=== PATIENT | female | born 1965 | race Caucasian/White ===

== ENCOUNTER 2016-12-31 13:36 | Emergency (ER) | payer MEDICAID ==
[~2016-12-31] VITALS: Ht 165.1 cm; Wt 61.2 kg
[2016-12-31] MEDS ORDERED: LORazepam 2MG/ML-1ML VIAL IV ONE (14:00)
[2016-12-31 14:19] VITALS: BP 172/92
[2016-12-31] MEDS ORDERED: KETOROLAC TROMETH 30 MG/ML 1ML VIAL IV ONE (14:30)
[2016-12-31 15:16] LABS: Basophils # (auto) 0 uL; Basophils % (auto) 0.3 % (0.0-2.0); Eosinophils # (auto) 0 uL; Eosinophils % (auto) 0.1 % (0.0-7.0); Hematocrit 40.1 % (36.0-46.0); Hemoglobin 13.4 g/dL (12.2-16.2); Lymphocytes # (auto) 1.2 uL; Mean Corpuscular Hemoglobin 30.3 pg (28.0-32.0); Mean Corpuscular Hgb Conc. 33.6 g/dL (32.0-36.0); Mean Corpuscular Volume 90.3 fL (80.0-100.0); Mean Platelet Volume 7.5 fL (6.9-10.8); Monocytes # (auto) 0.6 uL; Monocytes % (auto) 4.8 % (0.0-12.0); Neutrophils # (auto) 9.8 uL; Neutrophils % (auto) 84.8 % (37.0-80.0); Nucleated Red Blood Cells % 0.1 %; Platelet Count (auto) 355 10^3/uL (140-450); Red Cell Distribution Width 13.6 % (11.8-14.3); White Blood Cell 11.5 10^3/uL (4.4-10.8)
[2016-12-31 15:29] LABS: Albumin 4.1 g/dL (3.4-5.0); Anion Gap 6 (5-15); Aspartate Aminotransferase 15 U/L (15-37); Blood Urea Nitrogen 12 mg/dL (7-18); Calcium 9.2 mg/dL (8.5-10.1); Carbon Dioxide 29 mmol/L (21-32); Chloride 105 mmol/L (98-107); GFR African American 98 mL/min; GFR Non-African American 81 mL/min; Glucose 117 mg/dL (74-106); Potassium 3.5 mmol/L (3.5-5.1); Sodium 140 mmol/L (136-145)
[2016-12-31 15:32] LABS: Alkaline Phosphatase 72 U/L (45-117); Bilirubin, Total 0.6 mg/dL (0.2-1.0)
== END 2016-12-31 17:47 | disposition home or self-care (01) ==
LOC: ER 13:36 → EDBD 13:36 → ER 17:47
DX: F41.9 Anxiety disorder, unspecified (principal); M54.9 Dorsalgia, unspecified; G89.29 Other chronic pain; M25.561 Pain in right knee; Z90.710 Acquired absence of both cervix and uterus
CPT/HCPCS: 36415; 80053; 80307; 80320; 85025; 96374; 96375; 99284; J1885; J2060

== ENCOUNTER 2018-04-20 16:21 | Emergency (ER) | payer MEDICAID ==
[~2018-04-20] VITALS: Ht 170.2 cm; Wt 68.0 kg
[2018-04-20 16:43] VITALS: BP 142/74
== END 2018-04-20 17:40 | disposition home or self-care (01) ==
LOC: EDBD 16:21 → ER 16:21
DX: F41.0 Panic disorder [episodic paroxysmal anxiety] (principal); F31.9 Bipolar disorder, unspecified; Z90.710 Acquired absence of both cervix and uterus
CPT/HCPCS: 93005

== ENCOUNTER 2020-12-12 12:17 | Inpatient (IN) | payer MEDICAID ==
[~2020-12-12] VITALS: Ht 167.6 cm; Wt 73.5 kg
[2020-12-12 13:13] LABS: Basophils # (auto) 0.1 10 ^3/uL (0-0.2); Basophils % (auto) 0.6 % (0.0-2.0); Eosinophils # (auto) 0 10 ^3/uL (0-0.8); Hematocrit 35.1 % (36.0-46.0); Hemoglobin 11.9 g/dL (12.2-16.2); Lymphocytes # (auto) 0.5 10 ^3/uL (0.4-5.4); Lymphocytes % (auto) 3.4 % (10.0-50.0); Mean Corpuscular Hemoglobin 29.4 pg (28.0-32.0); Mean Corpuscular Hgb Conc. 34.1 g/dL (32.0-36.0); Mean Corpuscular Volume 86.3 fL (80.0-100.0); Monocytes # (auto) 0.5 10 ^3/uL (0-1.3); Monocytes % (auto) 3.3 % (0.0-12.0); Neutrophils # (auto) 13.1 10 ^3/uL (1.6-8.6); Neutrophils % (auto) 92.7 % (37.0-80.0); Red Blood Cells 4.06 10^6/uL (4.0-5.20); Red Cell Distribution Width 14.3 % (11.8-14.3); White Blood Cell 14.1 10^3/uL (4.4-10.8)
[2020-12-12 13:27] LABS: Lactic Acid w/Reflex 3.2 mmol/L (0.4-2.0)
[2020-12-12 13:30] LABS: Albumin 3.9 g/dL (3.4-5.0); BUN/Creatinine Ratio 8.7; Potassium 3.3 mmol/L (3.5-5.1)
[2020-12-12 13:35] LABS: Bilirubin, Total 0.9 mg/dL (0.2-1.0); Total Protein 7.2 g/dL (6.4-8.2)
[2020-12-12 14:51] LABS: Urine Bacteria NONE SEEN /hpf (None Seen); Urine Blood Negative /uL (Negative); Urine Mucus FEW (None Seen); Urine Specific Gravity 1.014 (1.001-1.035); Urine WBC <1 /hpf (0 - 5)
[2020-12-12 15:02] LABS: Amphetamine Screen, Urine NEGATIVE (NEGATIVE); Barbiturate Scree,Urine NEGATIVE (NEGATIVE); Benzodiazephine Screen, Urine NEGATIVE (NEGATIVE); Cannabinoid Screen, Urine POSITIVE (NEGATIVE); Cocaine Screen, Urine NEGATIVE (NEGATIVE); Opiate Scree,Urine POSITIVE (NEGATIVE); Phencyclidine Screen, Urine NEGATIVE (NEGATIVE)
[2020-12-12] MEDS ORDERED: NITROGLYCERIN 0.4 MG SL TAB SL PRN ×3 (17:30→23:00)
[2020-12-12] MEDS ORDERED: POTASSIUM CHL 20MEQ/100ML 100 ML IV ONE (17:30)
[2020-12-12] MEDS ORDERED: SODIUM CHLORIDE 0.9% 1,000 ML IV ONE (17:30)
[2020-12-12] MEDS ORDERED: MORPHINE SULFATE INJECTION 2 MG/ML SYRG IV PRN ×5 (17:30→23:00)
[2020-12-12] MEDS ORDERED: LORazepam 2MG/ML-1ML VIAL IV ONE (18:15)
[2020-12-12] MEDS ORDERED: HALOPERIDOL LACTATE 5 MG/ML INJ VIAL IM ONE (18:15)
[2020-12-12] MEDS ORDERED: ENOXAPARIN SOD 80 MG/0.8ML SYRINGE SC ONE (19:00)
[2020-12-12] MEDS ORDERED: METOPROLOL SUCCINATE XL 50 MG TAB PO ONE ×2 (19:00→22:45)
[2020-12-12] MEDS ORDERED: BENAZEPRIL HCL 10 MG TAB PO ONE ×2 (19:00→22:45)
[2020-12-12] MEDS ORDERED: SODIUM CHLORIDE 0.9% 1,000 ML IV SCH ×2 (19:00→23:00)
[2020-12-12] MEDS ORDERED: ASPirin 81 mg TAB PO ONE ×2 (19:00→22:45)
[2020-12-12] MEDS ORDERED: MAGNESIUM SULFATE 1GM/100ML 100 ML IV ONE ×3 (19:00→22:45)
[2020-12-12] MEDS ORDERED: cefTRIAXone 1GM/50ML D5W 50 ML IV ONE ×3 (19:00→22:45)
[2020-12-12] MEDS ORDERED: ATORVASTATIN 20 MG TAB PO ONE (19:00)
[2020-12-12] MEDS ORDERED: ENOXAPARIN SOD 100 MG/1 ML SYRINGE SC ONE (19:00)
[2020-12-12] MEDS ORDERED: PANTOPRAZOLE 40 MG/10 ML VIAL INJ IV ONE ×2 (19:00→21:25)
[2020-12-12] MEDS ORDERED: QUET200T30 PO (19:02)
[2020-12-12] MEDS ORDERED: LURA1TAB PO (19:02)
[2020-12-12] MEDS ORDERED: GABA-339 PO (19:02)
[2020-12-12] MEDS ORDERED: BUSP10TA31 PO (19:02)
[2020-12-12] MEDS ORDERED: HYDR25TA4 PO (19:02)
[2020-12-12] MEDS ORDERED: VENL75CA3 PO (19:02)
[2020-12-12] MEDS ORDERED: VENL150C2 PO (19:02)
[2020-12-12] MEDS ORDERED: MULT1TAB70 PO (19:02)
[2020-12-12] MEDS ORDERED: MORP1TAB12 PO (19:02)
[2020-12-12] MEDS ORDERED: OMEP-260 PO (19:07)
[2020-12-12] MEDS ORDERED: LISI20TA28 PO (19:07)
[2020-12-12] MEDS ORDERED: CLON0.1T PO (19:07)
[2020-12-12] MEDS ORDERED: ALBUAER3 IN (19:07)
[2020-12-12] MEDS ORDERED: BACL10TA PO (19:07)
[2020-12-12] MEDS ORDERED: CHOL20007 PO (19:07)
[2020-12-12] MEDS ORDERED: IPRA0.00 IN (19:07)
[2020-12-12] MEDS ORDERED: IBUP600T27 PO (19:07)
[2020-12-12] MEDS ORDERED: SENN-205 PO (19:07)
[2020-12-12] MEDS ORDERED: PROBTAB12 PO (19:07)
[2020-12-12] MEDS ORDERED: HYDR-4798 PO (19:07)
[2020-12-12] MEDS ORDERED: MONT10TA42 PO (19:07)
[2020-12-12 19:20] LABS: Magnesium 1.7 mg/dL (1.6-2.6); Phosphorus 2.2 mg/dL (2.5-4.90)
[2020-12-12] MEDS ORDERED: hydrALAZINE HCL 20 MG/ML VL IV PRN ×2 (19:30→23:00)
[2020-12-12] MEDS ORDERED: ALBUTEROL SULF 2.5 MG/0.5ML(0.5%) NEB SOLN NEB PRN ×2 (19:30→23:00)
[2020-12-12] MEDS ORDERED: QUEtiapine FUMARATE 100 MG TAB PO ONE (19:30)
[2020-12-12] MEDS ORDERED: DOCUSATE SOD 100 MG CAP PO PRN ×2 (19:45→23:00)
[2020-12-12] MEDS ORDERED: LORazepam 0.5 MG TAB PO PRN ×2 (19:45→23:00)
[2020-12-12] MEDS ORDERED: ONDANSETRON HCL 4 MG/2 ML VIAL IV PRN ×2 (19:45→23:00)
[2020-12-12] MEDS ORDERED: ALUM & MAG HYDROX-SIMETH LIQ(MAALOX) 30 ML PO PRN ×2 (19:45→23:00)
[2020-12-12] MEDS ORDERED: HYDROcodone-ACET 5/325MG TAB PO PRN ×2 (19:45→23:00)
[2020-12-12] MEDS ORDERED: ACETAMINOPHEN 325 MG TAB PO PRN ×2 (19:45→23:00)
[2020-12-12] MEDS ORDERED: GABAPENTIN 300 MG CAP PO SCH ×2 (22:00)
[2020-12-12] MEDS ORDERED: busPIRone HCL 10 MG TAB PO SCH (22:00)
[2020-12-12] MEDS ORDERED: MONTELUKAST SODIUM 10 MG TAB PO SCH ×2 (22:00)
[2020-12-12] MEDS ORDERED: IPRATROPIUM BROM 0.5 MG/2.5ML INH SOL NEB SCH (22:00)
[2020-12-12] MEDS ORDERED: IPRATROPIUM BROM 0.5 MG/2.5ML INH SOL NEB PRN ×2 (22:00→23:00)
[2020-12-12] MEDS ORDERED: ATORVASTATIN 20 MG TAB PO SCH ×2 (22:00)
[2020-12-12] MEDS ORDERED: QUEtiapine FUMARATE 100 MG TAB PO SCH (22:00)
[2020-12-12 23:00] VITALS: BP_SYST 108; BP_SYST 95; BP_DIAS 56; BP_DIAS 58
[2020-12-12] MEDS: GABAPENTIN 300 MG CAP PO SCH (23:01)
[2020-12-12] MEDS: busPIRone HCL 10 MG TAB PO SCH (23:03)
[2020-12-13 00:13] VITALS: BP 95/58
[2020-12-13 05:00] VITALS: BP 96/67
[2020-12-13] MEDS: GABAPENTIN 300 MG CAP PO SCH ×2 (05:49→14:24)
[2020-12-13] MEDS ORDERED: VENLAFAXINE HCL 37.5mg XR cap PO SCH ×2 (07:00)
[2020-12-13] MEDS: busPIRone HCL 10 MG TAB PO SCH (08:43)
[2020-12-13 09:00] VITALS: BP 98/66
[2020-12-13] MEDS ORDERED: cefTRIAXone 1GM/50ML D5W 50 ML IV SCH ×2 (09:00)
[2020-12-13] MEDS ORDERED: ASPirin 81 mg TAB PO SCH ×2 (10:00)
[2020-12-13] MEDS ORDERED: BENAZEPRIL HCL 10 MG TAB PO SCH ×2 (10:00)
[2020-12-13] MEDS ORDERED: ENOXAPARIN SOD 40 MG/0.4 ML SYRINGE SC SCH ×4 (10:00)
[2020-12-13] MEDS ORDERED: PANTOPRAZOLE 40 MG/10 ML VIAL INJ IV SCH ×2 (10:00)
[2020-12-13] MEDS ORDERED: METOPROLOL SUCCINATE XL 50 MG TAB PO SCH ×2 (10:00)
[2020-12-13 13:00] VITALS: BP 127/75
[2020-12-13 14:56] LABS: BUN/Creatinine Ratio 10.8; Calcium 8.6 mg/dL (8.5-10.1); Potassium 3.1 mmol/L (3.5-5.1)
[2020-12-13 16:00] VITALS: BP 133/77
[2020-12-13] MEDS ORDERED: POTASSIUM CHL 20 Meq TABLET PO ONE (16:00)
[2020-12-13 16:46] VITALS: BP 120/94
[2020-12-13] MEDS ORDERED: QUEtiapine FUMARATE 100 MG TAB PO SCH (22:00)
== END 2020-12-13 18:08 | disposition home or self-care (01) | DRG 812 ==
LOC: EDUNIT# 12:17 → EDBD 12:17 → ER 12:18 → TELE 19:38 → TELE-WESTW 22:00 → TELE 22:00 → TELE-WESTW 22:21
PROVIDERS: ADMIT Hospitalist; ATTEND Internal Medicine
DX: T40.2X1A Poisoning by other opioids, accidental (unintentional), initial encounter (principal); I21.4 Non-ST elevation (NSTEMI) myocardial infarction; J69.0 Pneumonitis due to inhalation of food and vomit; G92 Toxic encephalopathy; Z20.822 Contact with and (suspected) exposure to COVID-19; E87.1 Hypo-osmolality and hyponatremia; D64.9 Anemia, unspecified; E78.5 Hyperlipidemia, unspecified; E87.6 Hypokalemia; F10.10 Alcohol abuse, uncomplicated; F11.20 Opioid dependence, uncomplicated; F12.90 Cannabis use, unspecified, uncomplicated; F17.200 Nicotine dependence, unspecified, uncomplicated; F31.9 Bipolar disorder, unspecified; F41.9 Anxiety disorder, unspecified; G89.4 Chronic pain syndrome; I10 Essential (primary) hypertension; J44.0 Chronic obstructive pulmonary disease with (acute) lower respiratory infection; K21.9 Gastro-esophageal reflux disease without esophagitis; K29.70 Gastritis, unspecified, without bleeding; N39.0 Urinary tract infection, site not specified; Y92.89 Other specified places as the place of occurrence of the external cause; Z71.6 Tobacco abuse counseling; Z79.899 Other long term (current) drug therapy; Z81.8 Family history of other mental and behavioral disorders; Z82.49 Family history of ischemic heart disease and other diseases of the circulatory system; Z90.710 Acquired absence of both cervix and uterus
CPT/HCPCS: 36415; 36600; 70450; 71045; 80048; 80053; 80307; 80320; 81001; 82805; 83036; 83605; 83735; 84100; 84443; 84484; 85025; 87040; 87086; 87426; 93005; 93306; 96361; 96365; 96366; 96372; 96375; 99291; C9113; G0378; J0696; J3480

== ENCOUNTER 2021-03-03 09:53 | Inpatient (IN) | payer MEDICAID ==
[~2021-03-03] VITALS: Ht 165.1 cm; Wt 72.6 kg
[~2021-03-03 09:53] MED LIST: ALBUAER3 IN; BACL10TA PO; BUSP10TA31 PO; CHOL20007 PO; CLON0.1T PO; GABA-339 PO; HYDR-4798 PO; HYDR25TA4 PO; IBUP600T27 PO; IPRA0.00 IN; LISI20TA28 PO; LURA1TAB PO; MONT-8 PO; MORP1TAB12 PO; MULT1TAB70 PO; OMEP-260 PO; PROBTAB12 PO; QUET200T30 PO; SENN-205 PO; VENL150C3 PO; VENL75CA3 PO
[2021-03-03] MEDS ORDERED: LORazepam 2MG/ML-1ML VIAL IV ONE ×2 (10:45→15:00)
[2021-03-03 10:59] LABS: Basophils # (auto) 0 10 ^3/uL (0-0.2); Basophils % (auto) 0.2 % (0.0-2.0); Eosinophils # (auto) 0 10 ^3/uL (0-0.8); Hematocrit 33.8 % (36.0-46.0); Hemoglobin 11.9 g/dL (12.2-16.2); Lymphocytes # (auto) 0.4 10 ^3/uL (0.4-5.4); Lymphocytes % (auto) 2.1 % (10.0-50.0); Mean Corpuscular Hemoglobin 29.9 pg (28.0-32.0); Mean Corpuscular Hgb Conc. 35.2 g/dL (32.0-36.0); Mean Corpuscular Volume 84.8 fL (80.0-100.0); Monocytes % (auto) 4.8 % (0.0-12.0); Neutrophils # (auto) 19.2 10 ^3/uL (1.6-8.6); Neutrophils % (auto) 92.9 % (37.0-80.0); Red Blood Cells 3.99 10^6/uL (4.0-5.20); Red Cell Distribution Width 13.6 % (11.8-14.3); White Blood Cell 20.7 10^3/uL (4.4-10.8)
[2021-03-03 11:15] LABS: Albumin 4.6 g/dL (3.4-5.0); Calcium 9.1 mg/dL (8.5-10.1); Potassium 3.3 mmol/L (3.5-5.1)
[2021-03-03 11:20] LABS: BUN/Creatinine Ratio 7.9; Bilirubin, Total 0.8 mg/dL (0.2-1.0); Total Protein 7.4 g/dL (6.4-8.2)
[2021-03-03] MEDS ORDERED: SODIUM CHLORIDE 0.9% 1,000 ML IV ONE ×3 (11:45→15:30)
[2021-03-03 13:32] LABS: Urine Bacteria FEW /hpf (None Seen); Urine Blood TRACE /uL (Negative); Urine Specific Gravity 1.006 (1.001-1.035); Urine WBC 1 /hpf (0 - 5)
[2021-03-03 14:01] LABS: Alcohol, Urine < 3.0 mg/dL (0-10); Amphetamine Screen, Urine NEGATIVE (NEGATIVE); Barbiturate Scree,Urine NEGATIVE (NEGATIVE); Benzodiazephine Screen, Urine NEGATIVE (NEGATIVE); Cannabinoid Screen, Urine POSITIVE (NEGATIVE); Cocaine Screen, Urine NEGATIVE (NEGATIVE); Opiate Scree,Urine NEGATIVE (NEGATIVE); Phencyclidine Screen, Urine NEGATIVE (NEGATIVE)
[2021-03-03] MEDS ORDERED: POTASSIUM EFFERVESENT TAB 25 MEQ PO ONE (14:45)
[2021-03-03] MEDS ORDERED: cefTRIAXone 1GM/50ML D5W 50 ML IV ONE ×2 (14:45→21:00)
[2021-03-03] MEDS ORDERED: ENOXAPARIN SOD 80 MG/0.8ML SYRINGE SC ONE (14:45)
[2021-03-03] MEDS ORDERED: MAGNESIUM SULFATE 1GM/100ML 100 ML IV ONE ×2 (15:30→17:45)
[2021-03-03] MEDS ORDERED: SODIUM CHL 3% 500 ML IV ONE (15:30)
[2021-03-03] MEDS ORDERED: MORPHINE SULFATE INJECTION 2 MG/ML SYRG IV PRN ×2 (15:30→21:15)
[2021-03-03] MEDS ORDERED: DexAMETHasone SOD PHOS 10MG/1ML VIAL INJ IV ONE (15:30)
[2021-03-03] MEDS ORDERED: NITROGLYCERIN 0.4 MG SL TAB SL PRN ×2 (15:30→21:15)
[2021-03-03] MEDS ORDERED: POTASSIUM CHL 20MEQ/100ML 100 ML IV ONE (17:00)
[2021-03-03 17:07] LABS: BUN/Creatinine Ratio 7.1; Calcium 8.4 mg/dL (8.5-10.1); Potassium 3.2 mmol/L (3.5-5.1)
[2021-03-03 17:20] LABS: Cholesterol 176 mg/dL (< 200)
[2021-03-03 17:23] LABS: HDL Cholesterol 81 mg/dL (40-59); LDL Cholesterol 81 mg/dL (< 100); Triglycerides 52 mg/dL (< 150)
[2021-03-03 17:29] LABS: Free T3 2.05 pg/mL (2.3-4.2); Free T4 (Free Thyroxine) 0.93 ng/dL (0.89-1.76)
[2021-03-03] MEDS ORDERED: SODIUM CHLORIDE 0.9% 1,000 ML IV SCH ×2 (17:30→19:30)
[2021-03-03] MEDS ORDERED: POTASSIUM CHLORIDE 40 MEQ, LIDOCAINE 1% (LOCAL ANESTH.) 4 ML in SODIUM CHL 0.9% 250 ML IV ONE (17:45)
[2021-03-03 18:11] LABS: Phosphorus 2.4 mg/dL (2.5-4.90)
[2021-03-03] MEDS ORDERED: METOPROLOL TARTRATE 1MG/1ML-5ML VIAL IV PRN (19:15)
[2021-03-03] MEDS ORDERED: LORazepam 2MG/ML-1ML VIAL IV PRN (19:15)
[2021-03-03] MEDS ORDERED: ENOXAPARIN SOD 100 MG/1 ML SYRINGE SC ONE (19:15)
[2021-03-03] MEDS ORDERED: LACTATED RINGER'S 1,000 ML IV ONE (19:30)
[2021-03-03] MEDS: LORazepam 2MG/ML-1ML VIAL IV PRN ×2 (19:36→23:55)
[2021-03-03 20:37] LABS: Albumin 4.1 g/dL (3.4-5.0); Calcium 8.8 mg/dL (8.5-10.1); Potassium 3.8 mmol/L (3.5-5.1)
[2021-03-03 20:41] LABS: BUN/Creatinine Ratio 8.7; Bilirubin, Total 0.7 mg/dL (0.2-1.0); Total Protein 6.9 g/dL (6.4-8.2)
[2021-03-03] MEDS ORDERED: ONDANSETRON HCL 4 MG/2 ML VIAL IV PRN (21:15)
[2021-03-03] MEDS ORDERED: HYDROcodone-ACET 5/325MG TAB PO PRN (21:15)
[2021-03-03] MEDS ORDERED: hydrALAZINE HCL 20 MG/ML VL IV PRN (21:15)
[2021-03-03] MEDS ORDERED: DOCUSATE SOD 100 MG CAP PO PRN (21:15)
[2021-03-03] MEDS ORDERED: ACETAMINOPHEN 325 MG TAB PO PRN (21:15)
[2021-03-03] MEDS ORDERED: IPRATROPIUM BROM 0.5 MG/2.5ML INH SOL NEB ONE (21:15)
[2021-03-03] MEDS ORDERED: ALUM & MAG HYDROX-SIMETH LIQ(MAALOX) 30 ML PO PRN (21:15)
[2021-03-03] MEDS ORDERED: THIAMINE 100mg/ml INJ (200mg/2ml VIAL) IV ONE (21:15)
[2021-03-03] MEDS ORDERED: LORazepam 0.5 MG TAB PO PRN (21:15)
[2021-03-03] MEDS ORDERED: DEXTROSE (50%) 50ML SYRG IV PRN (21:15)
[2021-03-03] MEDS ORDERED: metroNIDAZOLE 500MG/100ML 100 ML IV ONE (22:00)
[2021-03-03] MEDS ORDERED: ACCU-CHEK COMFORT CURVE STRIP VI SCH (22:00)
[2021-03-03] MEDS ORDERED: InsuLIN REG 1unit/0.01ml Soln (100units/ml) SC SCH (22:00)
[2021-03-03] MEDS ORDERED: IPRATROPIUM BROM 0.5 MG/2.5ML INH SOL NEB SCH (22:00)
[2021-03-03] MEDS ORDERED: B-COMPLEX W/ C & FOLIC ACID(NEPHROVITE TAB) PO ONE (22:30)
[2021-03-03] MEDS ORDERED: METOPROLOL SUCCINATE XL 50 MG TAB PO ONE (22:30)
[2021-03-03] MEDS ORDERED: FAMOTIDINE (10MG/ML) 2ML VL IV ONE (22:30)
[2021-03-03] MEDS: chlordiazePOXIDE HCL 25 MG CAP PO SCH (22:30)
[2021-03-03] MEDS ORDERED: POTASSIUM PHOSPHATE 22 MEQ in SODIUM CHL 0.9% 100 ML IV ONE (22:30)
[2021-03-03] MEDS: ATORVASTATIN 20 MG TAB PO SCH (22:41)
[2021-03-03] MEDS: MONTELUKAST SODIUM 10 MG TAB PO SCH (22:42)
[2021-03-03] MEDS: SOD CHL 0.9%/ KCL 20MEQ 1,000 ML IV SCH (23:30)
[2021-03-04] MEDS: LORazepam 2MG/ML-1ML VIAL IV PRN ×2 (04:23→08:53)
[2021-03-04] MEDS ORDERED: metroNIDAZOLE 500MG/100ML 100 ML IV SCH (06:00)
[2021-03-04] MEDS: ENOXAPARIN SOD 80 MG/0.8ML SYRINGE SC SCH ×2 (06:48→18:00)
[2021-03-04] MEDS: chlordiazePOXIDE HCL 25 MG CAP PO SCH ×3 (06:49→22:17)
[2021-03-04 07:35] LABS: Basophils # (auto) 0 10 ^3/uL (0-0.2); Basophils % (auto) 0.1 % (0.0-2.0); Eosinophils # (auto) 0 10 ^3/uL (0-0.8); Hematocrit 29.1 % (36.0-46.0); Hemoglobin 10.3 g/dL (12.2-16.2); Lymphocytes # (auto) 0.4 10 ^3/uL (0.4-5.4); Lymphocytes % (auto) 3.4 % (10.0-50.0); Mean Corpuscular Hemoglobin 30.4 pg (28.0-32.0); Mean Corpuscular Hgb Conc. 35.3 g/dL (32.0-36.0); Mean Corpuscular Volume 86.2 fL (80.0-100.0); Neutrophils # (auto) 9.4 10 ^3/uL (1.6-8.6); Neutrophils % (auto) 87.5 % (37.0-80.0); Nucleated Red Blood Cells % 0.1 %; Red Blood Cells 3.37 10^6/uL (4.0-5.20); White Blood Cell 10.7 10^3/uL (4.4-10.8)
[2021-03-04 07:52] LABS: INR 1.05 (0.9-1.15)
[2021-03-04] MEDS: NEUTRA-PHOS TABLET PO SCH ×3 (08:00→18:00)
[2021-03-04] MEDS: metroNIDAZOLE 500 MG TAB PO SCH ×2 (08:08→16:00)
[2021-03-04 08:20] LABS: Albumin 3.6 g/dL (3.4-5.0); BUN/Creatinine Ratio 9.1; Bilirubin, Total 0.6 mg/dL (0.2-1.0); Calcium 8.5 mg/dL (8.5-10.1); Magnesium 2.1 mg/dL (1.6-2.6); Phosphorus 2.1 mg/dL (2.5-4.90); Total Protein 6.3 g/dL (6.4-8.2); Uric Acid 3.2 mg/dL (2.6-6.0)
[2021-03-04 08:51] LABS: Potassium 2.7 mmol/L (3.5-5.1)
[2021-03-04] MEDS ORDERED: POTASSIUM CHL 20 Meq TABLET PO ONE (09:15)
[2021-03-04] MEDS: FAMOTIDINE (10MG/ML) 2ML VL IV SCH ×2 (10:00→22:17)
[2021-03-04] MEDS: POTASSIUM CHL 20MEQ/100ML 100 ML IV SCH ×2 (10:37→12:38)
[2021-03-04] MEDS: FLORASTOR (S. BOULARDII) 250 MG CAP PO SCH (11:31)
[2021-03-04] MEDS: SOD CHL 0.9%/ KCL 20MEQ 1,000 ML IV SCH (14:00)
[2021-03-04] MEDS: cefTRIAXone 1GM/50ML D5W 50 ML IV SCH (21:17)
[2021-03-04] MEDS: THIAMINE HCL 100 MG TAB PO SCH (22:17)
[2021-03-04] MEDS: ATORVASTATIN 20 MG TAB PO SCH (22:17)
[2021-03-04] MEDS: B-COMPLEX W/ C & FOLIC ACID(NEPHROVITE TAB) PO SCH (22:17)
[2021-03-04] MEDS: MONTELUKAST SODIUM 10 MG TAB PO SCH (22:17)
[2021-03-04] MEDS: METOPROLOL SUCCINATE XL 50 MG TAB PO SCH (22:17)
[2021-03-05] MEDS: metroNIDAZOLE 500 MG TAB PO SCH ×3 (00:33→16:00)
[2021-03-05] MEDS: ENOXAPARIN SOD 80 MG/0.8ML SYRINGE SC SCH ×2 (05:50→16:48)
[2021-03-05 06:10] LABS: Calcium 8.3 mg/dL (8.5-10.1); Potassium 3.2 mmol/L (3.5-5.1)
[2021-03-05 06:14] LABS: BUN/Creatinine Ratio 11.9
[2021-03-05] MEDS: NEUTRA-PHOS TABLET PO SCH ×3 (08:00→16:48)
[2021-03-05 08:06] LABS: Immunoglobulin G, Serum 794 mg/dL (586-1602)
[2021-03-05] MEDS ORDERED: POTASSIUM CHLORIDE 40 MEQ, LIDOCAINE 1% (LOCAL ANESTH.) 4 ML in SODIUM CHL 0.9% 250 ML IV ONE (08:45)
[2021-03-05] MEDS: FLORASTOR (S. BOULARDII) 250 MG CAP PO SCH (09:17)
[2021-03-05] MEDS: FAMOTIDINE (10MG/ML) 2ML VL IV SCH ×2 (09:17→21:52)
[2021-03-05] MEDS: chlordiazePOXIDE HCL 25 MG CAP PO SCH ×2 (09:19→21:52)
[2021-03-05] MEDS: cefTRIAXone 1GM/50ML D5W 50 ML IV SCH (21:00)
[2021-03-05] MEDS: THIAMINE HCL 100 MG TAB PO SCH (21:52)
[2021-03-05] MEDS: ATORVASTATIN 20 MG TAB PO SCH (21:52)
[2021-03-05] MEDS: B-COMPLEX W/ C & FOLIC ACID(NEPHROVITE TAB) PO SCH (21:52)
[2021-03-05] MEDS: MONTELUKAST SODIUM 10 MG TAB PO SCH (21:52)
[2021-03-05] MEDS: MORPHINE SULFATE INJECTION 2 MG/ML SYRG IV PRN ×2 (22:02→23:07)
[2021-03-05] MEDS: METOPROLOL SUCCINATE XL 50 MG TAB PO SCH (22:02)
[2021-03-06] MEDS: metroNIDAZOLE 500 MG TAB PO SCH ×3 (00:25→16:00)
[2021-03-06] MEDS: ENOXAPARIN SOD 80 MG/0.8ML SYRINGE SC SCH ×2 (05:55→17:22)
[2021-03-06 05:59] LABS: Potassium 3.7 mmol/L (3.5-5.1)
[2021-03-06 06:05] LABS: BUN/Creatinine Ratio 9.8; Calcium 8.5 mg/dL (8.5-10.1); Magnesium 2.7 mg/dL (1.6-2.6)
[2021-03-06] MEDS ORDERED: chlordiazePOXIDE HCL 25 MG CAP PO SCH (07:00)
[2021-03-06] MEDS: FLORASTOR (S. BOULARDII) 250 MG CAP PO SCH (07:47)
[2021-03-06] MEDS: NEUTRA-PHOS TABLET PO SCH ×3 (07:47→17:21)
[2021-03-06] MEDS: FAMOTIDINE (10MG/ML) 2ML VL IV SCH (10:29)
[2021-03-06] MEDS: chlordiazePOXIDE HCL 25 MG CAP PO SCH (10:29)
[2021-03-06 19:29] VITALS: BP 114/54
[2021-03-06] MEDS ORDERED: diphenhdrAMINE HCL 25 MG CAP PO PRN (20:45)
== END 2021-03-06 22:06 | disposition home or self-care (01) | DRG 52 ==
LOC: EDBD 09:53 → ER 09:53 → EDSEX 09:53 → TELE 15:23
PROVIDERS: ADMIT Hospitalist; ATTEND Internal Medicine
DX: G93.41 Metabolic encephalopathy (principal); I21.A1 Myocardial infarction type 2; F10.131 Alcohol abuse with withdrawal delirium; I50.31 Acute diastolic (congestive) heart failure; E87.1 Hypo-osmolality and hyponatremia; I42.6 Alcoholic cardiomyopathy; E83.39 Other disorders of phosphorus metabolism; N30.90 Cystitis, unspecified without hematuria; E87.6 Hypokalemia; E86.1 Hypovolemia; K52.9 Noninfective gastroenteritis and colitis, unspecified; K21.9 Gastro-esophageal reflux disease without esophagitis; K29.70 Gastritis, unspecified, without bleeding; G89.29 Other chronic pain; D64.9 Anemia, unspecified; F11.20 Opioid dependence, uncomplicated; F31.9 Bipolar disorder, unspecified; F41.9 Anxiety disorder, unspecified; Y90.9 Presence of alcohol in blood, level not specified; F12.90 Cannabis use, unspecified, uncomplicated; F17.200 Nicotine dependence, unspecified, uncomplicated; I10 Essential (primary) hypertension; J44.9 Chronic obstructive pulmonary disease, unspecified; N30.00 Acute cystitis without hematuria; Z78.1 Physical restraint status; Z81.8 Family history of other mental and behavioral disorders; Z82.49 Family history of ischemic heart disease and other diseases of the circulatory system; Z90.710 Acquired absence of both cervix and uterus
CPT/HCPCS: 36415; 70450; 71045; 74176; 80048; 80053; 80061; 80307; 80320; 81001; 82024; 82306; 82533; 82550; 82784; 83036; 83605; 83690; 83735; 83880; 83930; 84100; 84132; 84146; 84300; 84439; 84443; 84481; 84484; 84550; 85025; 85379; 85610; 85730; 87040; 87086; 87088; 87186; 87426; 93005; 93306; 96361; 96365; 96372; 96375; 96376; G0378; J0696; J1100; J2001; J3480; J3490